=== PATIENT | male | born 1930 | race Caucasian/White ===

== ENCOUNTER 2019-05-02 02:02 | Inpatient (IN) | payer MEDICARE ==
[~2019-05-02] VITALS: Ht 165.1 cm; Wt 61.0 kg
[~2019-05-02 02:02] MED LIST: ASPI-831 PO; CARAS GTB; CEPH-443 PO; CLOP75TA28 PO; DONE10TA7 PO; EMPA25TA PO; FER325 PO; FURO20TA3 PO; HYOS0.1297 PO; ISOS10TA2 PO; LISI-313 PO; METO-335 PO; ONDA4TAB8 PO; PANT20TA2 PO; Ranolazine (Sr) PO; SITA1TAB5 PO; TAMS-14 PO
[2019-05-02] MEDS ORDERED: PANTOPRAZOLE 40 MG INJ IV STA (02:37)
[2019-05-02] MEDS ORDERED: ONDANSETRON 4 MG INJ IV STA (02:37)
[2019-05-02] MEDS ORDERED: OCTREOTIDE 50 MCG in SOD CHLORIDE 0.9% 25 ML IVPB STA (02:37)
[2019-05-02] MEDS ORDERED: SOD CHLORIDE 0.9% 1,000 ML IV STA (02:37)
[2019-05-02] MEDS ORDERED: morphine 2 MG INJ IV PRN (04:30)
[2019-05-02] MEDS ORDERED: ONDANSETRON 4 MG INJ IV PRN (04:30)
[2019-05-02] MEDS ORDERED: NACL 0.9% 3 ML SYG IV SCH (04:30)
[2019-05-02] MEDS ORDERED: ACETAMINOPHEN 325 MG TAB PO PRN (04:30)
[2019-05-02] MEDS ORDERED: PANTOPRAZOLE 40 MG INJ IV SCH (04:30)
[2019-05-02] MEDS ORDERED: DEXTROSE 50% 50 ML SYRINGE IV PRN ×2 (06:30)
[2019-05-02] MEDS ORDERED: GLUCAGON 1 MG INJ IM PRN (06:30)
[2019-05-02] MEDS ORDERED: GLUCOSE GEL 15 GRAM TUBE PO PRN ×2 (06:30)
[2019-05-02] MEDS ORDERED: GLUCOSE GEL 15 GRAM TUBE BUCCAL PRN (06:30)
[2019-05-02 06:48] VITALS: BP 105/64; PULSE 81; RESP 20
[2019-05-02 07:21] VITALS: BP 97/58; PULSE 75; RESP 18
[2019-05-02 08:00] VITALS: Ht 165.1 cm; Wt 61.0 kg
[2019-05-02] MEDS: INSULIN ASPART [NOVOLOG] 3 ML PEN SC SCH ×4 (09:07→20:29)
[2019-05-02] MEDS: SOD CHLORIDE 0.9% 1,000 ML IV SCH (11:21)
[2019-05-02] MEDS: CLOPIDOGREL 75 MG TAB PO SCH (11:29)
[2019-05-02] MEDS: SUCRALFATE (100 MG/ML) 10ML CUP GTB SCH ×3 (14:12→20:24)
[2019-05-02] MEDS: PANTOPRAZOLE 40 MG INJ IV SCH (17:38)
[2019-05-02] MEDS: TAMSULOSIN (SR) 0.4 MG CAP PO SCH (20:23)
[2019-05-02 20:26] VITALS: BP 110/62; PULSE 74
[2019-05-02 20:27] VITALS: RESP 18
[2019-05-03] MEDS: SOD CHLORIDE 0.9% 1,000 ML IV SCH ×2 (00:01→16:23)
[2019-05-03] MEDS: ACCU-CHEK XX SCH (02:00)
[2019-05-03] MEDS: PANTOPRAZOLE 40 MG INJ IV SCH ×2 (06:20→17:44)
[2019-05-03 07:50] VITALS: BP 99/57; PULSE 83; RESP 17
[2019-05-03] MEDS: CLOPIDOGREL 75 MG TAB PO SCH (09:09)
[2019-05-03] MEDS: SUCRALFATE (100 MG/ML) 10ML CUP GTB SCH ×4 (09:09→20:51)
[2019-05-03] MEDS: INSULIN ASPART [NOVOLOG] 3 ML PEN SC SCH ×4 (09:09→20:55)
[2019-05-03] MEDS: ASPIRIN 81 MG TAB PO SCH (13:03)
[2019-05-03 14:40] VITALS: BP 99/61; PULSE 91; RESP 18
[2019-05-03] MEDS: TAMSULOSIN (SR) 0.4 MG CAP PO SCH (16:46)
[2019-05-03 19:50] VITALS: BP 113/54; PULSE 88; RESP 20
[2019-05-04] MEDS: ACCU-CHEK XX SCH (02:00)
[2019-05-04 02:44] VITALS: BP 109/54; PULSE 89; RESP 18
[2019-05-04] MEDS: PANTOPRAZOLE 40 MG INJ IV SCH ×2 (05:27→18:00)
[2019-05-04] MEDS: SOD CHLORIDE 0.9% 1,000 ML IV SCH ×3 (05:27→22:08)
[2019-05-04 07:07] VITALS: BP 128/62; PULSE 91; RESP 18
[2019-05-04] MEDS: SUCRALFATE (100 MG/ML) 10ML CUP GTB SCH ×4 (08:33→20:32)
[2019-05-04] MEDS: ASPIRIN 81 MG TAB PO SCH (08:33)
[2019-05-04] MEDS: CLOPIDOGREL 75 MG TAB PO SCH (08:33)
[2019-05-04] MEDS: INSULIN ASPART [NOVOLOG] 3 ML PEN SC SCH ×3 (08:34→18:03)
[2019-05-04 13:37] VITALS: BP 116/58; PULSE 84; RESP 18
[2019-05-04] MEDS: HYOSCYAMINE 0.125 MG SUBL TAB PO SCH ×2 (14:45→22:05)
[2019-05-04 20:25] VITALS: BP 116/58; PULSE 77; RESP 17
[2019-05-04] MEDS: TAMSULOSIN (SR) 0.4 MG CAP PO SCH (20:32)
[2019-05-04] MEDS: Insulin NOVOLOG SS MILD Algorithm (SS with meals and bedtime) SC SCH (20:59)
[2019-05-05 01:26] VITALS: BP 145/67; PULSE 77; RESP 18
[2019-05-05] MEDS: ACCU-CHEK XX SCH (02:00)
[2019-05-05] MEDS: HYOSCYAMINE 0.125 MG SUBL TAB PO SCH ×3 (05:07→22:22)
[2019-05-05] MEDS: PANTOPRAZOLE 40 MG INJ IV SCH ×2 (05:07→17:39)
[2019-05-05 07:45] VITALS: BP 128/62; PULSE 82; RESP 19
[2019-05-05] MEDS: ASPIRIN 81 MG TAB PO SCH (08:56)
[2019-05-05] MEDS: SUCRALFATE (100 MG/ML) 10ML CUP GTB SCH ×4 (08:56→20:16)
[2019-05-05] MEDS: CLOPIDOGREL 75 MG TAB PO SCH (08:56)
[2019-05-05] MEDS: LISINOPRIL 5 MG TAB PO SCH (08:57)
[2019-05-05] MEDS: Insulin NOVOLOG SS MILD Algorithm (SS with meals and bedtime) SC SCH ×4 (08:58→20:15)
[2019-05-05] MEDS: NITROGLYCERIN (SL) 0.4 MG TAB SL PRN ×2 (14:45→14:53)
[2019-05-05 14:48] VITALS: BP 126/59; PULSE 74; RESP 18
[2019-05-05] MEDS ORDERED: HYDROCODONE/APAP (5/325) TAB PO PRN (15:00)
[2019-05-05] MEDS: SOD CHLORIDE 0.45% 1,000 ML IV SCH (16:36)
[2019-05-05] MEDS: POTASSIUM CHLORIDE 100 ML IVPB SCH ×2 (16:48→19:02)
[2019-05-05] MEDS: TAMSULOSIN (SR) 0.4 MG CAP PO SCH (20:16)
[2019-05-05] MEDS: RANOLAZINE (SR) 500 MG TAB PO SCH (20:16)
[2019-05-05] MEDS: ISOSORBIDE DINITRATE 10 MG TAB PO SCH (20:19)
[2019-05-05 20:24] VITALS: BP 130/61; PULSE 74; RESP 19
[2019-05-06] MEDS: ACCU-CHEK XX SCH (02:00)
[2019-05-06 02:44] VITALS: BP 132/66; PULSE 76; RESP 18
[2019-05-06] MEDS: HYOSCYAMINE 0.125 MG SUBL TAB PO SCH (05:18)
[2019-05-06] MEDS: SOD CHLORIDE 0.45% 1,000 ML IV SCH (05:20)
[2019-05-06] MEDS: PANTOPRAZOLE 40 MG INJ IV SCH (05:24)
[2019-05-06 05:36] VITALS: BP 121/81; PULSE 84
[2019-05-06] MEDS: Insulin NOVOLOG SS MILD Algorithm (SS with meals and bedtime) SC SCH ×2 (07:20→11:10)
[2019-05-06 07:43] VITALS: BP 126/64; PULSE 82; RESP 19
[2019-05-06] MEDS: ISOSORBIDE DINITRATE 10 MG TAB PO SCH ×2 (09:00→12:29)
[2019-05-06] MEDS: SUCRALFATE (100 MG/ML) 10ML CUP GTB SCH ×2 (09:00→12:27)
[2019-05-06] MEDS: LISINOPRIL 5 MG TAB PO SCH ×2 (09:00→12:33)
[2019-05-06] MEDS: CLOPIDOGREL 75 MG TAB PO SCH ×2 (09:00→12:29)
[2019-05-06] MEDS: ASPIRIN 81 MG TAB PO SCH ×2 (09:00→12:29)
[2019-05-06] MEDS: RANOLAZINE (SR) 500 MG TAB PO SCH ×2 (09:00→12:27)
[2019-05-06] MEDS: METOPROLOL (XL) 25 MG TAB PO SCH ×2 (09:00→12:34)
[2019-05-06] MEDS ORDERED: POTASSIUM CHLORIDE (SR) 20 MEQ TAB PO STA (12:00)
== END 2019-05-06 13:21 | disposition home or self-care (01) | DRG 378 ==
LOC: E/R 02:02 → MS1 05:15 → OBSVTOIN 05-03 07:22
PROVIDERS: ADMIT Family Medicine; ATTEND Hospitalist
DX: K26.4 Chronic or unspecified duodenal ulcer with hemorrhage (principal); E87.1 Hypo-osmolality and hyponatremia; I42.9 Cardiomyopathy, unspecified; K25.4 Chronic or unspecified gastric ulcer with hemorrhage; I10 Essential (primary) hypertension; D50.0 Iron deficiency anemia secondary to blood loss (chronic); E78.5 Hyperlipidemia, unspecified; I25.10 Atherosclerotic heart disease of native coronary artery without angina pectoris; E86.0 Dehydration; K21.9 Gastro-esophageal reflux disease without esophagitis; F03.90 Unspecified dementia, unspecified severity, without behavioral disturbance, psychotic disturbance, mood disturbance, and anxiety; K58.9 Irritable bowel syndrome, unspecified; N40.0 Benign prostatic hyperplasia without lower urinary tract symptoms; E11.9 Type 2 diabetes mellitus without complications; Z79.82 Long term (current) use of aspirin; Z79.02 Long term (current) use of antithrombotics/antiplatelets; Z95.5 Presence of coronary angioplasty implant and graft
CPT/HCPCS: 36415; 71045; 74176; 80048; 80053; 82270; 82962; 83690; 83735; 83880; 84100; 84484; 85025; 85610; 85730; 86850; 86900; 86901; 87338; 93005; 93306; 96365; 96375; C9113; G0378; J1815; J2405; J3480; J7030

== ENCOUNTER 2019-05-14 07:50 | Emergency (ER) | payer MEDICARE ==
[~2019-05-14] VITALS: Ht 162.6 cm; Wt 60.9 kg
[2019-05-14 07:52] VITALS: Ht 162.6 cm; Wt 60.9 kg
[2019-05-14] MEDS ORDERED: SOD CHLORIDE 0.9% 500 ML IV STA (07:55)
[2019-05-14] MEDS ORDERED: ONDANSETRON 4 MG INJ IV STA (07:55)
[2019-05-14] MEDS ORDERED: PANTOPRAZOLE 40 MG INJ IV ONE (08:30)
[2019-05-14] MEDS ORDERED: CEFTRIAXONE 1 GM/50 ML (PMX) 50 ML IVPB ONE (11:00)
[2019-05-14 12:28] VITALS: BP 166/67; PULSE 70; RESP 18
== END 2019-05-14 12:46 | disposition home or self-care (01) ==
LOC: E/R 07:50
DX: D64.9 Anemia, unspecified (principal); R79.89 Other specified abnormal findings of blood chemistry; E87.1 Hypo-osmolality and hyponatremia; N30.01 Acute cystitis with hematuria; I11.0 Hypertensive heart disease with heart failure; I50.9 Heart failure, unspecified; I25.10 Atherosclerotic heart disease of native coronary artery without angina pectoris; R40.2142 Coma scale, eyes open, spontaneous, at arrival to emergency department; R40.2362 Coma scale, best motor response, obeys commands, at arrival to emergency department; R40.2252 Coma scale, best verbal response, oriented, at arrival to emergency department; Z79.01 Long term (current) use of anticoagulants; Z79.82 Long term (current) use of aspirin; Z95.0 Presence of cardiac pacemaker
CPT/HCPCS: 36415; 71045; 80053; 81001; 82962; 83690; 84484; 85025; 85610; 86850; 86900; 86901; 93005; 96361; 96374; 96375; 99285; C9113; J0696; J2405; J7040